=== PATIENT | female | born 1965 | race Caucasian/White ===

== ENCOUNTER 2025-02-13 11:41 | Outpatient (CLI) | payer MEDICARE, MEDICAID, SELFPAY ==
[2025-02-13 12:11] VITALS: BP 120/79; PULSE 61; RESP 14; TEMP 36.5; O2SAT 99
[2025-02-13 12:39] VITALS: PULSE 64; RESP 16; O2SAT 99
[2025-02-13 12:40] VITALS: PULSE 74; RESP 18; O2SAT 100
[2025-02-13 12:42] VITALS: BP 131/77; PULSE 75; PULSE 78; RESP 20; O2SAT 100
[2025-02-13 12:46] VITALS: BP 132/77; PULSE 76; PULSE 82; RESP 18; O2SAT 98
[2025-02-13 12:50] VITALS: PULSE 76; RESP 15; O2SAT 100
--- NOTE | 2025-02-13 12:57 | DI.RAD_ITS ---
Exam(s) XR PAIN CLINIC CERVICAL SP 2V EXAM: XR PAIN CLINIC CERVICAL SP 2V CLINICAL HISTORY: Dx: Cervical Radiculopathy. TECHNIQUE: Fluoroscopy was provided for the referring physician for guidance with performing pain clinic injection procedure. COMPARISON: No exams were available for comparison FINDINGS: Please see procedure note for details. Fluoro time: 33.7 seconds RADIATION DOSE DELIVERED: Ka,r=2.51 mGy
[2025-02-13] MEDS: Epidural Tray 1 EACH MC (13:04)
[2025-02-13] MEDS: Omnipaque 240 MG/ML 50 ML BTL IJ (13:04)
[2025-02-13] MEDS: Dexamethasone Sod. Phos./Pres-Free 10 MG/ML VIAL IJ (13:05)
--- NOTE | 2025-02-17 07:45 | PDOC.PAIN ---
Date of service: 02/13/25 Time of Service: 12:30 Pain Managment Procedure Note Procedure Note Procedure Note: Procedure Note Cervical Interlaminar Epidural Steroid Injection Date of Service: February 13, 2025 Patient:ZAHIRA KESSLER? Provider:? Nayely Navarro DO, MPH ZAHIRA has been referred to the [facility] for cervical epidural steroid injection.? Pre-operative diagnosis: Cervical Radiculopathy ICD-10 M54.12 Post-operative diagnosis: Same Pre-procedure pain: VAS= 6/10 Comments: Was previously seen in our clinic. Her symptoms are unchanged. ZAHIRA was interviewed and the medical record was reviewed.? There were no medical, pharmacologic, radiographic or other structural contraindications to attempting fluoroscopically guided cervical interlaminar epidural steroid injection.? Risks, potential side effects, indications, and potential benefits of the procedure were reviewed with ZAHIRA.? Questions and concerns were addressed.? After it was clear that the patient was fully informed about the procedure, the printed consent form was signed by the patient and myself.? ZAHIRA was placed in the prone position on the fluoroscopy table and automated blood pressure cuff as well as pulse oximeter was applied. A standard time-out procedure was performed. The skin entry point for entering the epidural space by a midline C7-T1 interlaminar approach was identified under fluoroscopy and marked.? The skin entry point was thoroughly cleaned with Chlorhexadine preparation and the skin was draped.? Next a mixture of 2 mls of 1% lidocaine was infiltrated into the area of the planned skin entry point and underlying subcutaneous tissues.? Next an 18 gauge Tuohy needle was placed under fluoroscopic guidance and with loss of resistance technique into the epidural space utilizing multiple AP and 55 degree contralateral fluoroscopic views.? Upon correct needle placement and loss of resistance, there were no paresthesia or return of blood or CSF through the needle. Next 1 mls of preservative-free Omnipaque 240 was injected with clear epidural spread in the A/P and oblique views. Next, a solution of 15 mg of preservative-free Dexamethasone was injected. This was followed with 1ml of preservative-free normal saline. No unusual discomfort was expressed by ZAHIRA. The needle was withdrawn without difficulty. (49 mls of Omnipaque and 5 mg of Dexamethasone was wasted) ZAHIRA was observed and was without hemodynamic, neurologic, or allergic reactions.? Fluoroscopic images were digitally archived. ZAHIRA's vital signs were stable throughout the procedure and were as recorded in the doc flowsheet by the nursing staff.? If given, dosages of intravenous drugs for anxiolysis and analgesia were documented in MAR. Follow up plans and appointments were discussed with ZAHIRA.? Post procedure instruction was given as documented in nursing documentation and having met discharge criteria, [facility] the [facility]. A retrospective review of interlaminar cervical ESIs found that approximately two-thirds of patients with symptomatic cervical radiculopathy from disc herniation were able to avoid surgery for up to 1 year with treatment. Success rate was improved with earlier injection (< 100 days from diagnosis). Catalina EL, Devika V, Mimi L, Daniel AN, Domingo CHAVEZ. Cervical epidural steroid injections for symptomatic disc herniations. J Spinal Disord Tech. 2006 December;19(3):183-6. ? COMMENTS: No apparent complications. Post-procedure pain: VAS= 6/10. ZAHIRA to contact [facility] as needed. If at least 50% improvement in pain and/or function for at least 3 months is achieved, this procedure can be repeated. I personally completed the entire procedure. NAYELY NAVARRO DO, MPH ABPMR-subspecialty board certification in Pain Medicine [facility] Coding Conscious Sedation used for procedure: No CPT Codes: Inj Spine C/T w/Imaging - 61513 ([id number] ~G) Additional Codes: Date of Service (29155) Date of service: 02/13/25 Diagnoses: Cervical radiculopathy
== END 2025-02-13 11:42 | disposition home or self-care (01) ==
PROVIDERS: PCP Family Medicine; Visit Provider Preventive Medicine Occupational Medicine
DX: M54.2 Cervicalgia (principal); M54.12 Radiculopathy, cervical region
CPT/HCPCS: 62321; 72040; J1100; Q9967